=== PATIENT | female | born 1980 ===

== ENCOUNTER 2023-04-18 09:36 | Emergency (ER) | payer OTHER ==
[~2023-04-18] VITALS: Ht 162.6 cm; Wt 60.2 kg
[2023-04-18 09:39] VITALS: BP 120/74; PULSE 93; RESP 16; TEMP 97.7; O2SAT 100
[2023-04-18] MEDS: LEVONORGESTREL 1.5MG tablet 1.5 MG TABLET PO ONE (11:45)
[2023-04-18] MEDS: acetaminophen 325mg tablet PO ONE ×2 (11:50→12:00)
[2023-04-18] MEDS: TINIDAZOLE 500 MG TABLET PO ONE (11:50)
[2023-04-18] MEDS: ondansetron 4mg rapidly disintigrating tab PO ONE ×2 (12:10→12:25)
[2023-04-18] MEDS: azithromycin 250mg tablet PO ONE (13:23)
[2023-04-18] MEDS: CefTRIAXone 500MG IM Kit w/LIDOcaine (for pt below or = to 150kg) IM ONE (13:24)
== END 2023-04-18 17:26 | disposition home or self-care (01) ==
LOC: EEVIPCON 09:37 → ER 09:37
DX: R55 Syncope and collapse (principal); Z88.5 Allergy status to narcotic agent; Z88.1 Allergy status to other antibiotic agents; Z88.8 Allergy status to other drugs, medicaments and biological substances; Z91.041 Radiographic dye allergy status
CPT/HCPCS: 96372; 99284; J0696